=== PATIENT | male | born 1960 | race Caucasian/White ===

== ENCOUNTER 2018-07-15 22:48 | Emergency (ER) | payer BC, OTHER ==
[~2018-07-15] VITALS: Ht 172.7 cm; Wt 79.2 kg
[2018-07-16 00:13] VITALS: BP 142/98
== END 2018-07-16 00:27 | disposition home or self-care (01) ==
LOC: ER 22:49
DX: S01.512A Laceration without foreign body of oral cavity, initial encounter (principal); X58.XXXA Exposure to other specified factors, initial encounter; Y93.89 Activity, other specified; Y92.89 Other specified places as the place of occurrence of the external cause; Y99.8 Other external cause status
CPT/HCPCS: 99281; 99283